=== PATIENT | male | born 1940 | race Two or more races ===

== ENCOUNTER → 2017-05-31 | Outpatient (CLI) | payer MEDICARE ==
--- NOTE | 2017-05-31 13:04 | RADIOLOGY REPORT (SQ) ---
EXAM DESCRIPTION: CAROTID DOPPLER COMPLETED DATE/TIME: 05/31/2017 12:37 pm REASON FOR STUDY: DIZZINESS R42 DIZZINESS AND GIDDINESS COMPARISON: None. TECHNIQUE: Grayscale ultrasound, Doppler velocity and spectra, and color Doppler images acquired of the extra-cranial carotid and vertebral arteries. Images stored on PACS. LIMITATIONS: None. FINDINGS: RIGHT CAROTID CCA Velocities: Within normal limits. ICA Velocities Peak systolic 0.93 m/s. End diastolic 0.24 m/s. Proximal ICA/CCA peak systolic ratio 1.5. Spectra normal. No significant plaque. LEFT CAROTID CCA Velocities: Within normal limits. ICA Velocities Peak systolic 1.03 m/s. End diastolic 0.27 m/s. Proximal ICA/CCA peak systolic ratio 1.3. Spectra normal. No significant plaque. VERTEBRAL ARTERIES: Absent flow in the left vertebral artery. SUBCLAVIAN ARTERIES: Not imaged. OTHER: No other significant finding. IMPRESSION: No significant stenosis in the internal carotid arteries. Occluded left vertebral arter y. COMMENT: Quality ID #[id number]: Velocity criteria are extrapolated from the diameter data as defined by t he Society of Radiologists in Ultrasound Consensus Conference. Radiology 2003: 229; 340-346. TECHNICAL DOCUMENTATION: JOB ID: [id number] [employer]- All Rights Reserved Reading location - IP/workstation name: [email or web address]
== END ==
LOC: SP 09:51
PROVIDERS: ATTEND Obstetrics & Gynecology
DX: R42 Dizziness and giddiness (principal); Z95.828 Presence of other vascular implants and grafts; E11.9 Type 2 diabetes mellitus without complications; Z79.4 Long term (current) use of insulin
CPT/HCPCS: 93880

== ENCOUNTER 2017-08-23 15:58 | Emergency (ER) | payer MEDICARE ==
--- NOTE | 2017-08-23 19:17 | ER Document Report ---
ED Medical Screen (RME) - General Chief Complaint: Head Injury Stated Complaint: LIGHTHEADED Time Seen by Provider: 08/23/17 19:03 Notes: Patient presents due to family doctor calling him and telling him to come to emergency department for a subdural hematoma found on MRI. Patient was seen this week by his primary care physician for shoulder pain that is worse with movement and appears arthritic in nature. While he was there the daughter mentions that approximately 3 weeks ago he was having falling episodes in one particular day where he fell approximately 6 times. He denied any chest pain but states that it is felt like his heart is beating fast at times during that day. He has been asymptomatic since that time and has not had any falls and no recent fevers or illnesses chest pain or shortness of breath cough or congestion. After the results of the MRI were posted the family doctor called him and told him to come to emergency department He denies being on any blood thinners other than a daily aspirin I have greeted and performed a rapid initial assessment of this patient. A comprehensive ED assessment and evaluation of the patient, analysis of test results and completion of the medical decision making process will be conducted by additional ED providers. PHYSICAL EXAMINATION: GENERAL: Well-appearing, well-nourished and in no acute distress. HEAD: Atraumatic, normocephalic. EYES: Pupils equal round extraocular movements intact, conjunctiva are normal. ENT: Nares patent NECK: Normal range of motion, no midline TTP LUNGS: No respiratory distress Musculoskeletal: Normal range of motion NEUROLOGICAL: Normal speech, normal gait. PSYCH: Normal mood, normal affect. SKIN: Warm, Dry, normal turgor, no rashes or lesions noted. TRAVEL OUTSIDE OF THE [place] IN LAST 30 DAYS: No - Related Data Allergies/Adverse Reactions: No Known Allergies Allergy (Unverified 08/23/17 16:02) Past Medical History - Social History Chew tobacco use (# tins/day): No Frequency of alcohol use: None Drug Abuse: None - Past Medical History Cardiac Medical History: Reports: Hx Hypercholesterolemia, Hx Hypertension Endocrine Medical History: Reports: Hx Diabetes Mellitus Type 2 Renal/ Medical History: Denies: Hx Peritoneal Dialysis Physical Exam - Vital signs Vitals: Temp Pulse Resp BP Pulse Ox 99.1 F 72 20 132/81 H 95 08/23/17 16:18 08/23/17 16:18 08/23/17 16:18 08/23/17 16:18 08/23/17 16:18 Course - Vital Signs Vital signs: Temp Pulse Resp BP Pulse Ox 99.1 F 72 20 132/81 H 95 08/23/17 16:18 08/23/17 16:18 08/23/17 16:18 08/23/17 16:18 08/23/17 16:18 Doctor's Discharge - Discharge Referrals: JARRED ARSHAD MD [Primary Care Provider] - Follow up as needed
[2017-08-23 20:17] LABS: ABSOLUTE EOSINOPHILS # (AUTO) 0.1 10^3/uL (0.0-0.6); ABSOLUTE LYMPHOCYTES (AUTO) 1.3 10^3/uL (0.5-4.7); ABSOLUTE MONOCYTES (AUTO) 0.4 10^3/uL (0.1-1.4); ABSOLUTE NEUT (AUTO) 2.1 10^3/uL (1.7-8.2); BASOPHILS % (AUTO) 0.6 % (0-2); EOSINOPHILS % (AUTO) 3.3 % (0-6); HEMATOCRIT 43.1 % (37.9-51.0); HEMOGLOBIN 14.3 g/dL (13.5-17.0); LYMPHOCYTES % (AUTO) 33.2 % (13-45); MEAN CORPUSCULAR HEMOGLOBIN 32.1 pg (27.0-33.4); MEAN CORPUSCULAR HGB CONC 33.2 g/dL (32.0-36.0); MEAN CORPUSCULAR VOLUME 97 fl (80-97); MONOCYTES % (AUTO) 10.4 % (3-13); PLATELET COUNT 165 10^3/uL (150-450); RED BLOOD COUNT 4.46 10^6/uL (4.35-5.55); RED CELL DISTRIBUTION WIDTH 15.1 % (11.5-14.0); SEGMENTED NEUTROPHILS % (AUTO) 52.5 % (42-78); TOTAL CELLS COUNTED % (AUTO) 100 %
--- NOTE | 2017-08-23 20:19 | ER Document Report ---
ED General <PAUL CALIXTO - Last Filed: 08/23/17 22:46> - General Mode of Arrival: Ambulatory Information source: Patient TRAVEL OUTSIDE OF THE [place] IN LAST 30 DAYS: No <KINGSTON MIKE - Last Filed: 08/24/17 18:23> - General Chief Complaint: Head Injury Stated Complaint: LIGHTHEADED Time Seen by Provider: 08/23/17 19:03 Notes: Patient is a 76-year-old male with diabetes, high cholesterol, hypertension who was sent to the emergency department from primary care physician's office after being told he has a subdermal hematoma. Patient states that he saw his PCP complaining of left shoulder pain after lifting weights. While at the office he mentioned that he had fallen 6x in one day while working in the yard 3 weeks ago , further stating he repeatedly hit his head. His PCP decided to perform an MRI which found the patient to have a subdermal hematoma. Patient was then instructed to the come into the emergency department. Patient denies any fevers , dizziness or recent illnesses. Patient mentions taking a daily aspirin. (KINGSTON MIKE) - Related Data Allergies/Adverse Reactions: No Known Allergies Allergy (Unverified 08/23/17 16:02) Past Medical History - General Information source: Patient - Social History Smoking Status: Never Smoker Chew tobacco use (# tins/day): No Frequency of alcohol use: None Drug Abuse: None Family History: Reviewed & Not Pertinent Patient has suicidal ideation: No Patient has homicidal ideation: No - Past Medical History Cardiac Medical History: Reports: Hx Hypercholesterolemia, Hx Hypertension Endocrine Medical History: Reports: Hx Diabetes Mellitus Type 2 <KINGSTON MIKE - Last Filed: 08/24/17 18:23> Review of Systems - Review of Systems Constitutional: No symptoms reported EENT: No symptoms reported Cardiovascular: No symptoms reported Respiratory: No symptoms reported Gastrointestinal: No symptoms reported Genitourinary: No symptoms reported Male Genitourinary: No symptoms reported Musculoskeletal: See HPI Skin: No symptoms reported Hematologic/Lymphatic: See HPI Neurological/Psychological: No symptoms reported -: Yes All other systems reviewed and negative <KINGSTON MIKE - Last Filed: 08/24/17 18:23> Physical Exam - General General appearance: Appears well, Alert In distress: None - HEENT Head: Normocephalic, Atraumatic Eyes: Normal Conjunctiva: Normal Extraocular movements intact: Yes Pupils: PERRL Neck: Normal - Respiratory Respiratory status: No respiratory distress - Cardiovascular Rhythm: Regular Heart sounds: Normal auscultation Murmur: No Friction rub: No Gallop: None auscultated - Abdominal Inspection: Normal Distension: No distension Bowel sounds: Normal Tenderness: Nontender Organomegaly: No organomegaly - Extremities General upper extremity: Normal ROM General lower extremity: Normal ROM Shoulder: Tender - Left shoulder to palpation - Neurological Neuro grossly intact: Yes Cognition: Normal Orientation: AAOx4 [place] Coma Scale Eye Opening: Spontaneous [place] Coma Scale Verbal: Oriented [place] Coma Scale Motor: Obeys Commands [place] Coma Scale Total: 15 Speech: Normal - Psychological Associated symptoms: Normal affect, Normal mood - Skin Skin Temperature: Warm Skin Moisture: Dry Skin Color: Normal <KINGSTON MIKE - Last Filed: 08/24/17 18:23> - Vital signs Vitals: Temp Pulse Resp BP Pulse Ox 99.1 F 72 20 132/81 H 95 08/23/17 16:18 08/23/17 16:18 08/23/17 16:18 08/23/17 16:18 08/23/17 16:18 Course - Laboratory Result Diagrams: 08/23/17 20:07 08/23/17 20:07 - EKG Interpretation by Me EKG shows normal: Sinus rhythm, Blanding, Intervals, QRS Complexes, ST-T Waves Rate: Normal Rhythm: NSR <PAUL CALIXTO - Last Filed: 08/23/17 22:46> - Laboratory Result Diagrams: 08/23/17 20:07 08/23/17 20:07 <KINGSTON MIKE - Last Filed: 08/24/17 18:23> - Re-evaluation Re-evalutation: 08/23/17 22:27 Phone call to [facility] was made, I was put in touch with the PA on for Dr. Baird named Michael Kali. After discussing the case, he felt the patient should come to the office tomorrow to be seen. I discussed the MRI with the radiologist personnel arbitrator who agreed that the reading of acute subdural hemorrhage is problematic as any new additional bleeding might not be seen on an MRI, and MRI is not good for telling age of a subdural hematoma. He recommended doing a CT scan. The CT scan shows bilateral small subdural fluid collections with small amount of subacute blood on the right there is no midline shift. Based on the CT reading, and the totally asymptomatic patient, going to the office in the morning sounds appropriate. (PAUL CALIXTO) - Vital Signs Vital signs: Temp Pulse Resp BP Pulse Ox 99.1 F 72 17 149/81 H 92 08/23/17 16:18 08/23/17 16:18 08/23/17 22:02 08/23/17 22:02 08/23/17 22:02 - Laboratory Laboratory results interpreted by me: 08/23/17 08/23/17 08/23/17 20:07 20:07 20:21 RDW 15.1 H Sodium 146.2 H Carbon Dioxide 34 H BUN 26 H Glucose 66 L POC Glucose 62 L 08/23/17 23:00 RDW Sodium Carbon Dioxide BUN Glucose POC Glucose 63 L Discharge <PAUL CALIXTO - Last Filed: 08/23/17 22:46> <KINGSTON MIKE - Last Filed: 08/24/17 18:23> - Discharge Clinical Impression: Subdural hematoma Condition: Stable Disposition: HOME, SELF-CARE Additional Instructions: Call Dr. Gallo's office tomorrow morning to schedule an appointment for tomorrow. Ask for Adriane who does his scheduling. The number is [phone]. Take the CD of the brain scans and copies of the radiology reports with you to your appointment. RETURN TO THE EMERGENCY ROOM IF ANY NEW OR WORSENING SYMPTOMS. Referrals: JARRED ARSHAD MD [Primary Care Provider] - Follow up as needed Scribe Attestation: 08/23/17 21:05 I personally performed the services described in the documentation, reviewed and edited the documentation which was dictated to the scribe in my presence, and it accurately records my words and actions. (PAUL CALIXTO) Scribe Documentation - Scribe Written by Abelardo:: Abelardo Garcias, 08/23/2017 20:20 acting as scribe for :: Ji <KINGSTON MIKE - Last Filed: 08/24/17 18:23>
[2017-08-23 20:30] LABS: INTERNATIONAL RATION (INR) 0.91; PARTIAL THROMBOPLASTIN TIME 28.6 SEC (23.5-35.8); PROTHROMBIN TIME 12.7 SEC (11.4-15.4)
[2017-08-23 20:34] LABS: ALANINE AMINOTRANSFERASE 30 U/L (21-72); ALBUMIN 4.3 g/dL (3.5-5.0); ALKALINE PHOSPHATASE 68 U/L (38-126); ANION GAP 10 (5-19); ASPARTATE AMINO TRANSFERASE 29 U/L (17-59); BILIRUBIN,DIRECT 0.3 mg/dL (0.0-0.4); BILIRUBIN,TOTAL 0.8 mg/dL (0.2-1.3); BLOOD UREA NITROGEN 26 mg/dL (7-20); CARBON DIOXIDE 34 mmol/L (22-30); CHLORIDE 102 mmol/L (98-107); GLUCOSE 66 mg/dL (75-110); POTASSIUM 4.4 mmol/L (3.6-5.0); SODIUM 146.2 mmol/L (137-145); TOTAL PROTEIN 7.4 g/dL (6.3-8.2)
--- NOTE | 2017-08-23 21:26 | RADIOLOGY REPORT (SQ) ---
EXAM DESCRIPTION: CT HEAD WITHOUT COMPLETED DATE/TIME: 08/23/2017 9:00 pm REASON FOR STUDY: Subdural on MRI today, ? how recent this is COMPARISON: MR head 08/23/2017 TECHNIQUE: Axial images acquired through the brain without intravenous contrast. Images reviewed wi th bone, brain and subdural windows. Additional sagittal and coronal reconstructions were generated. Images stored on PACS. All CT scanners at this facility use dose modulation, iterative reconstruction, and/or weight based d osing when appropriate to reduce radiation dose to as low as reasonably achievable (ALARA). [facility]: Dose Right [facility]: CareDose [facility]: Dose Right [facility]: Teradose 4D [facility]: Smart [employer] RADIATION DOSE: CT Rad equipment meets quality standard of care and radiation dose reduction techniq ues were employed. CTDIvol: 53.2 mGy. DLP: 911 mGy-cm. mGy. LIMITATIONS: None. FINDINGS: VENTRICLES: Normal size and contour. CEREBRUM: No masses. No infarction. No midline shift. Small bilateral subdural fluid collections. The collection on the right has a small amount of subacute blood. Normal morris/white matter different iation. No areas of low density in the white matter. CEREBELLUM: No masses. No hemorrhage. No alteration of density. No evidence for acute infarction. EXTRAAXIAL SPACES: See above. ORBITS AND GLOBE: No intra- or extraconal masses. Normal contour of globe without masses. CALVARIUM: No fracture. PARANASAL SINUSES: No fluid or mucosal thickening. SOFT TISSUES: No mass or hematoma. OTHER: No other significant finding. IMPRESSION: Bilateral small subdural fluid collections with a small amount of subacute blood on the right. There is no midline shift. EVIDENCE OF ACUTE STROKE: NO. COMMENT: Quality ID # [id number]: Final reports with documentation of one or more dose reduction techniques (e.g., Automated exposure control, adjustment of the mA and/or kV according to patient size, use of iterative reconstruction technique) TECHNICAL DOCUMENTATION: JOB ID: [id number] [email or web address]- All Rights Reserved Reading location - IP/workstation name: [email or web address]
--- NOTE | 2017-08-23 22:50 | EKG REPORT ---
SEVERITY:- NORMAL ECG - SINUS RHYTHM : Confirmed by: Prudencio Kwok 23-Aug-2017 22:50:15
[2017-08-23 22:56] VITALS: BP 149/81
== END 2017-08-23 22:57 | disposition home or self-care (01) ==
LOC: ER 15:58
DX: S06.5X9A Traumatic subdural hemorrhage with loss of consciousness of unspecified duration, initial encounter (principal); W19.XXXA Unspecified fall, initial encounter; E11.9 Type 2 diabetes mellitus without complications; Y92.007 Garden or yard of unspecified non-institutional (private) residence as the place of occurrence of the external cause; E78.00 Pure hypercholesterolemia, unspecified; I10 Essential (primary) hypertension
CPT/HCPCS: 36415; 70450; 80053; 82962; 85025; 85610; 85730; 93005; 93010; 99284

== ENCOUNTER → 2017-08-23 | Outpatient (CLI) | payer MEDICARE ==
--- NOTE | 2017-08-23 14:03 | RADIOLOGY REPORT (SQ) ---
EXAM DESCRIPTION: MRI HEAD COMBO COMPLETED DATE/TIME: 08/23/2017 1:12 pm REASON FOR STUDY: NEW ONSET POSTURE INSTABILITY/POSS CVA R29.3 ABNORMAL POSTURE R26.89 OTHER ABNOR MALITIES OF GAIT AND MOBILITY E11.69 TYPE 2 DIABETES MELLITUS WITH OTHER SPECIFIED COMPLIC COMPARISON: None. TECHNIQUE: Multiplanar imaging includes noncontrasted T1, T2, FLAIR, diffusion with ADC map and post gadolinium contrast T1 sequences. Images stored on PACS. CONTRAST TYPE AND DOSE: 15 mL ProHance gadolinium RENAL FUNCTION: GFR > 60. LIMITATIONS: None. FINDINGS: An acute subdural hemorrhage is present throughout the right hemisphere over the frontal p arietal and posterior temporal regions. At its thickest, it measures about 7 mm in thickness over th e right parietal region. There is mild local mass effect with flattening of gyri over the frontal and parietal convexities. N o right to left subfalcine shift. Subdural collection signal is isointense on T1 and bright on T2, l ikely Oxyhemoglobin. This report was called as a critical result to Dr. Arshad, 1340 hours 08/23/2017. ANATOMY: No developmental anomalies. Normal vascular flow voids. Pituitary fossa normal. CSF SPACES: As above CEREBRUM: No MR evidence of acute ischemic change, acute brain parenchymal hemorrhage or midline shif t. There is flattening of the gyri over the right frontal and parietal convexity from adjacent subdu ral hemorrhage. POSTERIOR FOSSA: No signal alteration. No hemorrhage. No edema, masses, or mass effect. Internal julio cesar tory canals, cerebellopontine angles, mastoids normal. No enhancing lesions. No abnormal enhancement post contrast. DIFFUSION IMAGING: Negative for acute or subacute infarction. ORBITS: No masses. Globes post cataract surgery. PARANASAL SINUSES: No fluid levels. Mucosa normal. OTHER: No other significant finding. IMPRESSION: Acute right hemispheric subdural with mild local mass effect. EVIDENCE OF ACUTE STROKE: NO. COMMENT: Pertinent findings on the imaging study reported as a CRITICAL RESULT to JARRED ARSHAD MD at 13:40 on 08/23/2017. Category of Critical Result: Acute subdural hemorrhage right hemisphere TECHNICAL DOCUMENTATION: JOB ID: [id number] [employer]- All Rights Reserved Reading location - IP/workstation name: [email or web address]
== END ==
LOC: RAD 11:54
PROVIDERS: ATTEND Obstetrics & Gynecology
DX: R29.3 Abnormal posture (principal); R26.89 Other abnormalities of gait and mobility; E78.5 Hyperlipidemia, unspecified; E11.9 Type 2 diabetes mellitus without complications; Z79.4 Long term (current) use of insulin
CPT/HCPCS: 82565; 70553; A9576

== ENCOUNTER → 2017-10-25 | Outpatient (CLI) | payer MEDICARE ==
[2017-10-25 11:56] LABS: ABSOLUTE EOSINOPHILS # (AUTO) 0.1 10^3/uL (0.0-0.6); ABSOLUTE MONOCYTES (AUTO) 0.4 10^3/uL (0.1-1.4); ABSOLUTE NEUT (AUTO) 2.8 10^3/uL (1.7-8.2); BASOPHILS % (AUTO) 0.6 % (0-2); EOSINOPHILS % (AUTO) 2.8 % (0-6); HEMATOCRIT 44.1 % (37.9-51.0); HEMOGLOBIN 14.5 g/dL (13.5-17.0); LYMPHOCYTES % (AUTO) 23.3 % (13-45); MEAN CORPUSCULAR HEMOGLOBIN 31.9 pg (27.0-33.4); MEAN CORPUSCULAR HGB CONC 32.9 g/dL (32.0-36.0); MEAN CORPUSCULAR VOLUME 97 fl (80-97); MONOCYTES % (AUTO) 9.5 % (3-13); PLATELET COUNT 176 10^3/uL (150-450); RED BLOOD COUNT 4.55 10^6/uL (4.35-5.55); SEGMENTED NEUTROPHILS % (AUTO) 63.8 % (42-78); TOTAL CELLS COUNTED % (AUTO) 100 %; WHITE BLOOD COUNT 4.5 10^3/uL (4.0-10.5)
[2017-10-25 12:11] LABS: ANION GAP 9 (5-19); BLOOD UREA NITROGEN 24 mg/dL (7-20); CALCIUM 9.9 mg/dL (8.4-10.2); CARBON DIOXIDE 34 mmol/L (22-30); CHLORIDE 104 mmol/L (98-107); GLUCOSE 58 mg/dL (75-110); POTASSIUM 4.5 mmol/L (3.6-5.0); SODIUM 146.5 mmol/L (137-145)
--- NOTE | 2017-10-25 22:28 | EKG REPORT ---
SEVERITY:- NORMAL ECG - SINUS RHYTHM : Confirmed by: Prudencio Kwok 25-Oct-2017 22:28:04
== END ==
LOC: OD 10:55
PROVIDERS: ATTEND Orthopaedic Surgery
DX: Z01.818 Encounter for other preprocedural examination (principal); E78.5 Hyperlipidemia, unspecified; E11.9 Type 2 diabetes mellitus without complications
CPT/HCPCS: 36415; 80048; 85025; 93005; 93010

== ENCOUNTER → 2018-05-15 | Outpatient (CLI) | payer MEDICARE ==
--- NOTE | 2018-05-15 10:32 | RADIOLOGY REPORT (SQ) ---
EXAM DESCRIPTION: NM HIDA SCAN WITH CCK COMPLETED DATE/TIME: 05/15/2018 10:18 am REASON FOR STUDY: RUQ PAIN (R10.11) R10.11 RIGHT UPPER QUADRANT PAIN COMPARISON: None. RADIONUCLIDE AND DOSE: DOSAGE RADIONUCLIDE: 5.34 millicuries Tc99m Mebrofenin. DOSAGE CCK: 1.4 micrograms. DOSAGE MORPHINE: Not required. The route of agent administration: Intravenous TECHNIQUE: Serial imaging right upper quadrant up to 60 minutes following injection of radionuclide. CCK injected after gallbladder visualized. LIMITATIONS: None. FINDINGS: LIVER: Normal visualization without areas of photopenia. INTRAHEPATIC BILE DUCTS: Normal size and no delay in visualization. COMMON BILE DUCT: Normal without dilatation. GALLBLADDER: Normal visualization. Calculated ejection fraction of 34.3%. Normal range is greater than 35%. PHYSICAL RESPONSE: Patients presenting complaint was not reproduced. OTHER: No other significant finding. IMPRESSION: 1. Abnormal STUDY. Gallbladder ejection fraction 34.3% (normal range is greater than 3 5%). EVIDENCE FOR BILIARY DYSKINESIS. TECHNICAL DOCUMENTATION: JOB ID: [id number]- All Rights Reserved Reading location - IP/workstation name: [email or web address]
== END ==
LOC: RAD 07:46
PROVIDERS: ATTEND Obstetrics & Gynecology
DX: R10.11 Right upper quadrant pain (principal)
CPT/HCPCS: 78227; J2805; A9537

== ENCOUNTER → 2018-05-25 | Outpatient (CLI) | payer MEDICARE ==
--- NOTE | 2018-05-25 15:38 | RADIOLOGY REPORT (SQ) ---
EXAM DESCRIPTION: CT CHEST WITH; CT ABDOMEN IV CONTRAST ONLY COMPLETED DATE/TIME: 05/25/2018 1:33 pm REASON FOR STUDY: RUQ PAIN R10.31 RIGHT LOWER QUADRANT PAIN COMPARISON: Hepatobiliary scan with gallbladder ejection fraction 05/15/2018 CONTRAST TYPE AND DOSE: contrast/concentration: Isovue 350.00 mg/ml; Total Contrast Delivered: 81.0 ml; Total Saline Delivered: 68.0 ml RENAL FUNCTION: Creatinine 1.0 TECHNIQUE: CT scan of the chest performed using helical scanning technique with dynamic intravenous contrast injection. Images reviewed with lung, soft tissue and bone windows. Reconstructed coronal a nd sagittal MPR images reviewed. All images stored on PACS. CT scan of the abdomen performed with intravenous and without oral contrastusing helical scanning roger hnique with dynamic intravenous contrast injection. Images reviewed with lung, soft tissue and bone windows. Reconstructed coronal and sagittal MPR images reviewed. Delayed images for evaluation of t he urinary system also acquired and evaluated. All images stored on PACS. All CT scanners at this facility use dose modulation, iterative reconstruction, and/or weight based d osing when appropriate to reduce radiation dose to as low as reasonably achievable (ALARA). [facility]: Dose Right [facility]: CareDose [facility]: Dose Right [facility]: Teradose 4D [facility]: [employer] RADIATION DOSE: CT Rad equipment meets quality standard of care and radiation dose reduction techniq ues were employed. CTDIvol: 4.4 - 4.4 mGy. DLP: 485 mGy-cm. . LIMITATIONS: None. FINDINGS: CHEST: LUNGS AND PLEURA: No opacities, nodules, masses. No pneumothorax. No effusions. HILAR AND MEDIASTINAL STRUCTURES: No identified masses or abnormal nodes. HEART AND VASCULAR STRUCTURES: No aneurysm or dissection. No central pulmonary emboli. No pericardi al effusion. Heavily calcified atherosclerotic plaque and along the proximal left coronary arteries HARDWARE: None. THYROID AND OTHER SOFT TISSUES: No masses. No adenopathy. BONES: No significant finding. OTHER: No other significant finding. ABDOMEN AND PELVIS: LIVER: Normal size. No masses. No dilated ducts. SPLEEN: Normal size. No focal lesions. PANCREAS: No masses. No significant calcifications. No adjacent inflammation or peripancreatic fluid collections. Pancreatic duct not dilated. GALLBLADDER: No identified stones by CT criteria. No inflammatory changes to suggest cholecystitis. ADRENAL GLANDS: No significant masses or asymmetry. RIGHT KIDNEY AND URETER: No solid masses. No significant calcification. No hydronephrosis or hydroure ter. LEFT KIDNEY AND URETER: No solid masses. No significant calcification. No hydronephrosis or hydrouret er. AORTA AND VESSELS: No abdominal aortic aneurysm. However, the abdominal aorta and major visceral bra nches have atherosclerotic calcification at their origins. There is greater than 75% narrowing of th e celiac artery, best shown on coronal series 604, image 39. On the 50% narrowing of the proximal SM A is present at its origin, best shown on coronal series 604 image 37. There is 75% right renal angela ry stenosis best shown on coronal 604 images 39 and 40. Left renal artery is widely patent. Inferio r mesenteric artery is patent. RETROPERITONEUM: No retroperitoneal adenopathy, hemorrhage or masses. BOWEL AND PERITONEAL CAVITY: No masses or inflammatory changes. No free fluid or peritoneal masses. APPENDIX: Normal ABDOMINAL WALL: No masses. No hernias. BONES: No significant or acute findings. OTHER: No other significant finding. 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
== END ==
LOC: RAD 12:35
PROVIDERS: ATTEND Surgery
DX: R10.31 Right lower quadrant pain (principal)
CPT/HCPCS: 71260; 74160; 82565